=== PATIENT | female | born 1945 | race Caucasian/White ===

== ENCOUNTER 2016-08-07 14:30 | Emergency (ER) | payer OTHER ==
[~2016-08-07] VITALS: Ht 167.6 cm; Wt 80.7 kg
--- NOTE | 2016-08-07 14:46 | ED AMS/SEIZURE/WEAK/DIZZY ---
History of Present Illness General Chief Complaint: General Adult Stated Complaint: BIBA FOR NAUSEA, FEELING FAINT Source: patient, old records Exam Limitations: no limitations Vital Signs & Intake/Output Vital Signs & Intake/Output Vital Signs Date Time Temp Pulse Resp B/P B/P Pulse O2 O2 Flow FiO2 Mean Ox Delivery Rate 08/07 1807 70 18 168/90 96 Room Air 08/07 1649 66 16 178/86 98 Room Air 08/07 1530 98 Room Air 08/07 1436 98.9 59 16 205/91 98 Room Air Allergies Coded Allergies: No Known Allergies (08/07/16) Reconcile Medications Budesonide/Formoterol Fumarate (Symbicort 160-4.5 Mcg Inhaler) 160 MCG-4.5 MCG/ ACTUATION HFA.AER.AD 2 PUF INH BID BREATHING PROBLEMS (Reported) Calcium Carbonate/Vitamin D3 (Caltrate 600 + D Tablet) 600 MG-800 TABLET 1 TAB PO DAILY SUPPLEMENT (Reported) Citalopram Hydrobromide (Citalopram HBr) 20 MG TABLET 1 TAB PO DAILY MENTAL HEALTH (Reported) Difluprednate (Durezol) 0.05 % DROPS 1 GTT OS AD EYE (Reported) Gatifloxacin (Zymaxid) 0.5 % DROPS 1 GTT OP AD EYE (Reported) Losartan Potassium 50 MG TABLET 1 TAB PO DAILY HEART (Reported) Meclizine HCl 25 MG TABLET 1 TAB PO TIDPRN PRN dizziness Multivitamin (Daily Multiple Vitamin) 1 EACH TABLET 1 TAB PO DAILY SUPPLEMENT (Reported) Omeprazole 20 MG CAPSULE.DR 1 CAP PO DAILY GI (Reported) Ondansetron (Zofran Odt) 4 MG TAB.RAPDIS 1 TAB SL TID PRN nausea Triage Note: BIBA FOR EPISODE OF DIZZINESS AFTER BENDING OVER DESCRIBES EPISODE TO BE OVERWHELMING WITH DIAPHORESIS BUT DENIES ANY CP/SOB. REPORTS VERTIGO IN THE PAST. HX HTN. ARRIVES AAOX3 AND WARM. ACCUCHECK 115. 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 NO ACTIVE VOMITING. PUPILS EQUAL AND REACTIVE, NO NYSTAGMUS NOTED. Triage Nurses Notes Reviewed? yes Onset: Abrupt Duration: hour(s): (1), constant Timing: recent history Injury Environment: home Severity: moderate Severity Numbers: 7 Modifying Factors: Worsens With: movement. Associated Symptoms: N/V HPI: 70-year-old female with history of hypertension and vertigo presents emergency room status post 70-year-old female history of hypertension vertigo presents after developing sudden onset of room spinning dizziness worse with head movement eye movement associated nausea vomiting after she bent over. Patient denies any associated chest pain palpitation shortness of breath. No recent fall or head trauma. She denies headache vision changes abdominal pain palpitations. There are no modifying factors otherwise or associated symptoms. (CHAU SONI) Past History Travel History Traveled to [place] past 21 day No Medical History Any Pertinent Medical History? see below for history Neurological: vertigo EENT: CATARACT SX JULY 2016 Cardiovascular: hypertension Respiratory: asthma, COPD Gastrointestinal: NONE Hepatic: NONE Renal: NONE Musculoskeletal: NONE Psychiatric: NONE Endocrine: NONE Blood Disorders: NONE Cancer(s): NONE Surgical History Surgical History: non-contributory Psychosocial History What is your primary language Frisian Tobacco Use: Current Not Daily Daily Tobacco Use Amount/Type: =< 4 Cigarettes daily Family History Hx Contributory? No (CHAU SONI) Review of Systems Review of Systems Constitutional: Reports: see HPI. All Other Systems: Reviewed and Negative Comments Review of systems: See HPI, All other systems negative. Constitutional, no chills no fever, no malaise HEENT: No visual changes no sore throat no congestion Cardiovascular: No chest pain , no palpitation Skin: no rashes, no change in skin Respiratory: No dyspnea no cough no sputum GI: No nausea no vomiting, no diarrhea : No dysuria Muscle skeletal: No joint pain, no back pain, no neck pain, Neurologic: No numbness no confusion, no headache Psych: No stress Heme/endocrine: No bruising no bleeding Immunology: No lymphadenopathy (CHAU SONI) Physical Exam Physical Exam General Appearance: well developed/nourished, alert, awake Comments: Well-developed well-nourished person in no acute distress HEENT: Normal EENT exam; PERRL, EOMI, no nystagmus. HEAD is atraumatic. moist mucous membranes. Neck: Supple, no lymphadenopathy, normal range of motion Back: Nontender, Full range of motion Cardiovascular: Regular rate and rhythms no murmurs rubs Respiratory:No respiratory distress. Patient speaking in full complete sentences. Breath sounds clear to auscultation bilaterally: NO W/R/R Abdomen: Soft, nontender nondistended, no appreciable organomegaly. Normal bowel sounds. No rebound/guarding, Extremity: No edema, full range of motion of extremities Neuro: Alert oriented x3, motor sensory normal, cranial nerves II through XII grossly intact. There were no obvious focal neurologic abnormalities. Skin: No appreciable rash on exposed skin, skin is warm and dry. Psych: Mood and affect is normal, memory and judgment is normal. Core Measures ACS in differential dx? Yes CVA/TIA Diagnosis: No Severe Sepsis Present: No Septic Shock Present: No (JUAN NUNEZ,CHAU) Progress Differential Diagnosis: arrythmia, anemia, benign positional vertigo, CVA/stroke , dehydration, electrolyte imbalance, GI bleed, intracranial Hem., intracranial mass/tumor, labrynthitis, Meniere's disease, migraine JAY Plan of Care: Orders Procedure Date/time Status Saline Lock 08/07 144 Active Telemetry/Time Study Analyst 08/07 1445 Active TROPONIN LEVEL 08/07 1445 Complete COMPREHENSIVE METABOLIC PANEL 08/07 1445 Complete CBC WITHOUT DIFFERENTIAL 08/07 144 Complete EKG 08/07 1432 Active Laboratory Tests 08/07/16 1505: Anion Gap 8, Estimated GFR > 60, BUN/Creatinine Ratio 33.8 H, Glucose 95, Calcium 8.5, Total Bilirubin 0.6, AST 21, ALT 31, Alkaline Phosphatase 56, Troponin I < 0.01, Total Protein 5.9 L, Albumin 3.7, Globulin 2.2, Albumin/ Globulin Ratio 1.7, CBC w Diff NO MAN DIFF REQ, RBC 4.53, MCV 88.7, MCH 29.8, RDW 13.9, MPV 8.1, Gran % 75.3 H, Lymphocytes % 17.8 L, Monocytes % 6.7, Eosinophils % 0, Basophils % 0.2, Absolute Granulocytes 4.4, Absolute Lymphocytes 1.0 L, Absolute Monocytes 0.4, Absolute Eosinophils 0, Absolute Basophils 0, PUBS MCHC 33.6 Labs ordered patient medicated Valium Phenergan IV IV fluids CAT scan and labs ordered Repeat evaluation patient reports symptoms are improving pending CAT scan is discussed with patient and family at length all of her lab results to date case discussed with Dr. Truong Repeat evaluation patient is sitting upright eyes open feeling improved tolerating by mouth I discussed with the patient at length all of their results. I had an extensive conversation regarding need for close follow up with their primary care physician this week as well as return precautions. I answered all of their questions, they feel comfortable with the plan and follow-up care. I discussed the medications that they will receive with the patient. I gave them signs and symptoms that could indicate an adverse reaction. I have advised them to limit their activities until they can see how they respond to the medication. (CHAU SONI) Diagnostic Imaging: Viewed by Me: CT Scan. Discussed w/RAD: CT Scan. Radiology Impression: PATIENT: JACQUELINE IQBAL PRESENT AGE: 70 PATIENT ACCOUNT NO: [id number] : 43 LOCATION: [facility] ORDERING PHYSICIAN: CHAU NUNEZ SERVICE DATE: 08/07/16 EXAM TYPE: CAT - CT HEAD WO IV CONTRAST EXAMINATION: CT HEAD WITHOUT CONTRAST CLINICAL INFORMATION: Dizziness, nausea, vomiting. Evaluate for intracranial hemorrhage. COMPARISON: None TECHNIQUE: Contiguous axial imaging was performed from the skull base to vertex without intravenous administration of contrast. DLP: 600.71 mGy-cm FINDINGS: There is no evidence of acute intracranial hemorrhage or territorial infarction. No abnormal mass effect or midline shift is seen. Reed to white matter differentiation is well preserved. No extra-axial fluid collections are identified. The ventricles are normal in size. There is moderate patchy scattered periventricular and deep white matter hypodensities consistent with small vessel ischemic disease. The osseous structures and soft tissues are normal. The mastoid air cells and visualized portions of the paranasal sinuses are well aerated. IMPRESSION: 1. Moderate patchy periventricular and deep white matter chronic microangiopathy. 2. No acute intracranial pathology. DICTATED BY: TERELL KHAN MD DATE/TIME DICTATED:08/07/161631 SOIL CONSERVATION AIDE:PANCHO DATE/TIME TRANSCRIBED:08/07/161631 CONFIDENTIAL, DO NOT COPY WITHOUT APPROPRIATE AUTHORIZATION. <Electronically signed in Other Vendor System> SIGNED BY: TERELL KHAN MD 08/07/161638 Initial ED EKG: normal intervals, normal p-waves, normal QRS complex, normal sinus rhythm (80) Rhythm Strip: normal sinus rhythm (CHAU SONI) Departure Departure Time of Disposition: 1723 Disposition: HOME OR SELF CARE Condition: Stable Clinical Impression Primary Impression: Vertigo Referrals: GELA LUGO,KATIA SALINAS MD,MELVIN K. Additional Instructions: FOLLOW UP WITH YOUR ENT OR EAR NOSE AND THROAT DR REN. MECLIZINE DIRECTED IF NEEDED FOR DIZZINESS. ZOFRAN FOR NAUSEA. RETURN TO THE ER WITH ANY COCENRS Departure Forms: Customer Survey General Discharge Information Prescriptions: Current Visit Scripts Ondansetron (Zofran Odt) 1 TAB SL TID PRN nausea #10 TAB Meclizine HCl 1 TAB PO TIDPRN PRN dizziness #15 TAB (CHAU SONI) PA/BURIAL VAULT DELIVERER AND INSTALLER Co-Sign Statement Statement: ED Attending supervision documentation- [X] I saw and evaluated the patient. I have also reviewed all the pertinent lab results and diagnostic results. I agree with the findings and the plan of care as documented in the PA's/BURIAL VAULT DELIVERER AND INSTALLER's documentation. [X] I have reviewed the ED Record and agree with the PA's/BURIAL VAULT DELIVERER AND INSTALLER's documentation. [] Additions or exceptions (if any) to the PAs/BURIAL VAULT DELIVERER AND INSTALLER's note and plan are summarized below: [] (ZULMA LUGO,YASEMIN)
[2016-08-07 15:18] LABS: ABSOLUTE BASOPHIL COUNT 0 /CUMM (0.0-0.2); ABSOLUTE EOSINOPHIL COUNT 0 /CUMM (0.0-0.7); ABSOLUTE GRANULOCYTE CT 4.4 /CUMM (1.4-6.5); ABSOLUTE MONOCYTE COUNT 0.4 /CUMM (0.10-0.60); BASOPHIL % 0.2 % (0.0-2.0); EOSINOPHIL % 0 % (0-5); GRANULOCYTE % 75.3 % (42.2-75.2); HEMATOCRIT 40.2 % (37-47); MEAN CORPUSCULAR HGB 29.8 PG (27.0-31.0); MEAN CORPUSCULAR HGB CONC 33.6 G/DL (33.0-37.0); MEAN CORPUSCULAR VOLUME 88.7 FL (81.0-99.0); MEAN PLATELET VOLUME 8.1 FL (7.4-10.4); PLATELET COUNT 195 /CUMM (130-400); RBC DISTRIBUTION WIDTH 13.9 % (11.5-14.5); RED BLOOD CELL CT 4.53 /CUMM (4.20-5.40); WHITE BLOOD CELL COUNT 5.8 /CUMM (4.8-10.8)
[2016-08-07] MEDS ORDERED: SYMBICORT 16010.2 GM INH (15:20)
[2016-08-07] MEDS ORDERED: LOSARTAN POTASS50 M1 PO (15:20)
[2016-08-07] MEDS ORDERED: CALTRATE 600 +1 EACH PO (15:21)
[2016-08-07] MEDS ORDERED: OMEPRAZOLE20 M2 PO (15:21)
[2016-08-07] MEDS ORDERED: DAILY MULTIPLE1 EACH PO (15:21)
[2016-08-07] MEDS ORDERED: CITALOPRAM HBR20 MG PO (15:21)
[2016-08-07] MEDS ORDERED: DUREZOL5 ML OS (15:22)
[2016-08-07] MEDS ORDERED: ZYMAXID2.5 ML OP (15:23)
--- NOTE | 2016-08-07 16:39 | CT SCAN REPORT ---
EXAMINATION: CT HEAD WITHOUT CONTRAST CLINICAL INFORMATION: Dizziness, nausea, vomiting. Evaluate for intracranial hemorrhage. COMPARISON: None TECHNIQUE: Contiguous axial imaging was performed from the skull base to vertex without intravenous administration of contrast. DLP: 600.71 mGy-cm FINDINGS: There is no evidence of acute intracranial hemorrhage or territorial infarction. No abnormal mass effect or midline shift is seen. Reed to white matter differentiation is well preserved. No extra-axial fluid collections are identified. The ventricles are normal in size. There is moderate patchy scattered periventricular and deep white matter hypodensities consistent with small vessel ischemic disease. The osseous structures and soft tissues are normal. The mastoid air cells and visualized portions of the paranasal sinuses are well aerated. IMPRESSION: 1. Moderate patchy periventricular and deep white matter chronic microangiopathy. 2. No acute intracranial pathology.
[2016-08-07] MEDS ORDERED: MECLIZINE HCL25 MG PO (17:41)
[2016-08-07] MEDS ORDERED: ZOFRAN ODT4 M1 SL (17:41)
[2016-08-07 18:07] VITALS: BP 168/90
== END 2016-08-07 18:11 ==
LOC: ERH 14:30
PROVIDERS: Physician Assistant Medical
DX: R42 Dizziness and giddiness (principal)
CPT/HCPCS: 93005; 93010; 96361; 96374; 96375; J2550; J3360